=== PATIENT | male | born 1970 | race Asian ===

== ENCOUNTER 2018-09-08 21:17 | Emergency (ER) | payer SELFPAY ==
[~2018-09-08] VITALS: Ht 175.3 cm; Wt 79.4 kg
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
[2018-09-08 20:28] LABS: ANION GAP 24 mmol/L (5-15); BLOOD UREA NITROGEN 19 mg/dL (7-18); CALCIUM 9.4 MG/DL (8.5-10.1); CARBON DIOXIDE 21 MMOL/L (21-32); CHLORIDE 94 MMOL/L (98-107); CREATININE 1.2 MG/DL (0.55-1.30); POTASSIUM 3.3 MMOL/L (3.5-5.1); SODIUM 139 MMOL/L (136-145)
[2018-09-08 20:39] LABS: ALANINE AMINOTRANSFERASE 52 U/L (12-78); ALBUMIN 4.4 G/DL (3.4-5.0); ALBUMIN/GLOBULIN RATIO 1.5 (1.0-2.7); ALKALINE PHOSPHATASE 74 U/L (46-116); ASPARTATE AMINO TRANSFERASE 69 U/L (15-37); BILIRUBIN,TOTAL 1.2 MG/DL (0.2-1.0); CREATINE KINASE 115 U/L (26-308)
[2018-09-08 20:41] LABS: HEMOGLOBIN 14.9 G/DL (14.2-18.0); MEAN CORPUSCULAR VOLUME 95 FL (80-99); PLATELET COUNT 214 K/UL (150-450); RED BLOOD COUNT 4.41 M/UL (4.70-6.10); RED CELL DISTRIBUTION WIDTH 11.6 % (11.6-14.8); WHITE BLOOD COUNT 18.9 K/UL (4.8-10.8)
[2018-09-08 21:03] LABS: APPEARANCE,URINE CLEAR; BILIRUBIN, URINE NEGATIVE (NEGATIVE); GLUCOSE, URINE (UA) NEGATIVE (NEGATIVE); KETONES,URINE 4+ (NEGATIVE); LEUKOCYTE ESTERASE ,URINE 1+ (NEGATIVE); NITRITE,URINE NEGATIVE (NEGATIVE); PH,URINE 6 (4.5-8.0); PROTEIN,URINE 3+ (NEGATIVE); UROBILINOGEN,URINE 1 MG/DL (0.0-1.0)
[2018-09-08 21:05] LABS: BILIRUBIN,DIRECT 0.3 MG/DL (0.0-0.3)
[2018-09-08 21:10] LABS: COLOR,URINE YELLOW
[~2018-09-08 21:17] MED LIST: DiphenhydrAMINE 50mg/ml Inj IVP ONE; Metoclopramide 10mg/2ml Inj IVP ONE
[2018-09-08 21:20] VITALS: BP 120/78
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
--- NOTE | 2018-09-08 21:50 | NUR ---
ER Nurse Note: Belongings taken; stored in locker 2
--- NOTE | 2018-09-08 22:30 | NUR ---
ER Nurse Note: Pt getting out of bed, asking for water. Talked to ERMD if pt is able to tolerate liquids. Pt follows directions and is reorientated. Pt has steady gait, no complains of pain, no discoloration of the mouth. Pt infusing NS. Will continue to montior.
--- NOTE | 2018-09-08 23:00 | NUR ---
ER Nurse Note: Spoke to Colby at postion control about pt condition. Pt a&ox4, VSS, no signs of distress. Pt has not vomited, no oral discoloration, no swelling or drainage. Was advised to call back if sudden change in status.
[2018-09-08 23:57] LABS: HEMATOCRIT 41.6 % (42.0-52.0); HEMOGLOBIN 14.2 G/DL (14.2-18.0); MEAN CORPUSCULAR VOLUME 96 FL (80-99); PLATELET COUNT 199 K/UL (150-450); RED BLOOD COUNT 4.34 M/UL (4.70-6.10); RED CELL DISTRIBUTION WIDTH 12.1 % (11.6-14.8); WHITE BLOOD COUNT 18.1 K/UL (4.8-10.8)
[2018-09-09 00:08] LABS: ANION GAP 20 mmol/L (5-15); BLOOD UREA NITROGEN 18 mg/dL (7-18); CALCIUM 8.3 MG/DL (8.5-10.1); CARBON DIOXIDE 22 MMOL/L (21-32); CHLORIDE 97 MMOL/L (98-107); POTASSIUM 3.9 MMOL/L (3.5-5.1); SODIUM 139 MMOL/L (136-145)
[2018-09-09 00:12] LABS: ALANINE AMINOTRANSFERASE 46 U/L (12-78); ALBUMIN 3.8 G/DL (3.4-5.0); ALBUMIN/GLOBULIN RATIO 1.4 (1.0-2.7); ALKALINE PHOSPHATASE 65 U/L (46-116); ASPARTATE AMINO TRANSFERASE 60 U/L (15-37)
[2018-09-09 00:20] VITALS: BP 114/68
--- NOTE | 2018-09-09 02:30 | NUR ---
ER Nurse Note: Pt able to tolerate fluids well; no n/v. Pt disconnected himself from cardiac montior. Pt asleep, calm, no signs of distress. All safety measures met; will continue to montior.
[2018-09-09 04:20] VITALS: BP 128/74
--- NOTE | 2018-09-09 04:30 | NUR ---
ER Nurse Note: Pt asleep, calm, no signs of distress. Repeat lab draw completed. Pt has urinal at bedside; voided total 800cc. ERMD approved regular diet. Pending placement, all safety measures met, will continue to monitor.
[2018-09-09 04:48] LABS: BASOPHILS % (AUTO) 0.7 % (0.0-2.0); EOSINOPHILS % (AUTO) 0.1 % (0.0-3.0); HEMATOCRIT 37.3 % (42.0-52.0); HEMOGLOBIN 12.9 G/DL (14.2-18.0); LYMPHOCYTES % (AUTO) 14.8 % (20.0-45.0); MEAN CORPUSCULAR VOLUME 95 FL (80-99); MONOCYTES % (AUTO) 3.7 % (1.0-10.0); NEUTROPHILS % (AUTO) 80.8 % (45.0-75.0); PLATELET COUNT 182 K/UL (150-450); RED BLOOD COUNT 3.93 M/UL (4.70-6.10); RED CELL DISTRIBUTION WIDTH 11.7 % (11.6-14.8); WHITE BLOOD COUNT 16.3 K/UL (4.8-10.8)
[2018-09-09 07:03] VITALS: BP 129/85
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
--- NOTE | 2018-09-09 07:52 | NUR ---
ED Nurse Note: Got report from tiny Duran calm, cooperative, resting in bed. VSS at this time. Will continue to monitor.
--- NOTE | 2018-09-09 08:22 | NUR ---
ED Nurse Note: Pt able to tolerate fluids well; no n/v. Pt disconnected himself from cardiac montior. Unable update VS.
--- NOTE | 2018-09-09 09:07 | NUR ---
ED Nurse Note: Accu Check performed, BS is 129.
--- NOTE | 2018-09-09 09:59 | NUR ---
ED Nurse Note: Pt calm, cooperative, resting in bed. Pt stated " I want to go home". Pt AAOx4, VSS, no signs of distress.
--- NOTE | 2018-09-09 13:00 | NUR ---
ER DISCHARGE NOTE: Patient is cleared to be discharged per ERMD, pt is aox4, on room air, with stable vital signs. pt was given dc and prescription instructions, pt was able to verbalize understanding, pt id band and iv site removed without complications. pt is able to ambulate with steady gait. pt took all belongings. Pt calm, cooperative. Pt stated "I feel fine, mentally and physically; I do not want to kill myself. I want to go home". Pt has bruises on upper extremities, pt unknown how he got them. Pt ate breakfast; tolerated well, no n/v, pain.
--- NOTE | 2018-09-09 14:23 | Diagnostic Imaging Report ---
Indication: Chest pain Technique: One view of the chest Comparison: none Findings: The heart is upper limits normal in size. The lungs and pleural spaces are clear. Impression: No acute process
== END 2018-09-09 15:31 | disposition home or self-care (01) ==
LOC: EMR 21:47
DX: T65.892A Toxic effect of other specified substances, intentional self-harm, initial encounter (principal); Y92.9 Unspecified place or not applicable; F10.10 Alcohol abuse, uncomplicated; D72.828 Other elevated white blood cell count; R11.0 Nausea; R45.851 Suicidal ideations
CPT/HCPCS: 36415; 71045; 80053; 80307; 81003; 82248; 82550; 82962; 84484; 85007; 85025; 93005; 96361; 96374; 96375; 99285; G0480; J1200; J2405; J2765; S0028; 80329